=== PATIENT | male | born 1960 | race Caucasian/White ===

== ENCOUNTER 2021-04-24 15:17 | Inpatient (IN) | payer OTHER ==
[~2021-04-24] VITALS: Ht 180.3 cm; Wt 104.3 kg
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
--- NOTE | 2021-04-24 15:50 | NUR ---
IV LINE STARTED BLOOD DRAWN AND SENT TO LAB.
[2021-04-24 16:04] LABS: BASOPHILS # (AUTO) 0.1 K/uL (0.0-0.2); BASOPHILS % (AUTO) 0.8 % (0.0-2.0); EOSINOPHILS % (AUTO) 1.6 % (0.0-6.0); HEMATOCRIT 42 % (39-51); HEMOGLOBIN 14.2 g/dL (13.5-17.5); LYMPHOCYTES # (AUTO) 1.9 K/uL (0.8-4.8); LYMPHOCYTES % (AUTO) 14.5 % (20.0-44.0); MEAN CORPUSCULAR HGB CONC 34 g/dl (31.0-36.0); MEAN CORPUSCULAR VOLUME 92 fL (80-96); MONOCYTES # (AUTO) 1.5 K/uL (0.1-1.30); MONOCYTES % (AUTO) 11.4 % (2.0-12.0); NEUTROPHILS # (AUTO) 9.2 K/uL (1.8-8.9); NEUTROPHILS % (AUTO) 71.7 % (43.0-81.0); PLATELET COUNT (AUTO) 347 K/uL (150-450); WHITE BLOOD COUNT (AUTO) 12.8 K/uL (4.3-11.0)
[2021-04-24 16:17] LABS: CALCIUM, SERUM 8.7 mg/dL (8.5-10.1); CREATININE 1.3 mg/dL (0.6-1.3); POTASSIUM 3.5 mmol/L (3.5-5.1)
[2021-04-24 16:22] LABS: BILIRUBIN,DIRECT 0.4 mg/dL (0.0-0.2); BILIRUBIN,TOTAL 1.5 mg/dL (0.2-1.0); TOTAL PROTEIN, SERUM 7.2 g/dL (6.4-8.2)
--- NOTE | 2021-04-24 16:24 | NUR ---
DR BROOKS AT BEDSIDE FOR EVAL.
[2021-04-24 16:54] LABS: ALCOHOL, BLOOD < 3 mg/dL (0-0); MAGNESIUM 1.6 mg/dL (1.8-2.4)
[2021-04-24] MEDS ORDERED: FURO20TA4 PO (17:26)
[2021-04-24] MEDS ORDERED: ASPI-1169 PO (17:27)
[2021-04-24] MEDS ORDERED: LORA10TA7 PO (17:27)
[2021-04-24] MEDS ORDERED: AMLO-213 PO (17:27)
[2021-04-24] MEDS ORDERED: METO200T49 PO (17:27)
[2021-04-24] MEDS ORDERED: HYDR-4077 PO (17:27)
[2021-04-24] MEDS ORDERED: ATOR40TA PO (17:27)
--- NOTE | 2021-04-24 17:31 | NUR ---
COVID SWAB DONE AND SENT TO THE LAB
[2021-04-24] MEDS ORDERED: MAGNESIUM OXIDE 400 MG TABLET PO ONE (18:00)
[2021-04-24] MEDS ORDERED: ASPIRIN 325 MG TABLET PO ONE (18:00)
--- NOTE | 2021-04-24 18:10 | NUR ---
MOVE SHEET SUBMITTED.
--- NOTE | 2021-04-24 18:28 | NUR ---
PT TO RADIOLOGY FOR CHEST CT VIA [facility].
[2021-04-24] MEDS ORDERED: MAGNESIUM HYDROXIDE 30 ML UDC PO PRN (18:30)
[2021-04-24] MEDS ORDERED: MAG HYDROX/AL HYDROX/SIMETH 30 ML UDC PO PRN (18:30)
[2021-04-24] MEDS ORDERED: ACETAMINOPHEN 325 MG TABLET PO PRN (18:30)
[2021-04-24] MEDS ORDERED: ONDANSETRON HCL/PF 4 MG/2 ML VIAL IVP PRN (18:30)
--- NOTE | 2021-04-24 18:56 | NUR ---
THE PATIENT IS BACK FROM RADIOLOGY DEPT IN STABLE CONDITON.
[2021-04-24] MEDS ORDERED: ENOXAPARIN SODIUM 40 MG/0.4 ML DISP.SYRIN SQ SCH (19:00)
[2021-04-24] MEDS ORDERED: ASPIRIN 325 MG TABLET ONE (19:03)
[2021-04-24 19:21] LABS: CALCIUM, SERUM 8.4 mg/dL (8.5-10.1); CREATININE 1.2 mg/dL (0.6-1.3); POTASSIUM 3.6 mmol/L (3.5-5.1)
[2021-04-24 19:31] LABS: ALBUMIN 3.5 g/dL (3.4-5.0); BILIRUBIN,TOTAL 1.2 mg/dL (0.2-1.0); TOTAL PROTEIN, SERUM 6.3 g/dL (6.4-8.2)
[2021-04-24 19:57] LABS: THYROID STIMULATING HORMONE 2.713 uIU/mL (0.358-3.74)
--- NOTE | 2021-04-24 20:18 | NUR ---
PATIENT SITTING AT BED, REQUSTING FOR URINAL. PATIENT VVS, CONNECTED TO MONITOR.
[2021-04-24] MEDS ORDERED: ATORVASTATIN 40 MG TABLET PO SCH (22:00)
--- NOTE | 2021-04-25 00:16 | NUR ---
PT ASLEEP, EASILY AROUSABLE, NO ACUTE DISTRESS NOTED, RESP EVEN AND UNLABORED. CALL LIGHT WITHIN REACH. WILL CONTINUE TO MONITOR PT CLOSELY.
[2021-04-25] MEDS: BLOOD SUGAR DIAGNOSTIC 1 EACH STRIP IN SCH ×4 (04:11→17:18)
[2021-04-25 04:44] LABS: BASOPHILS # (AUTO) 0.4 K/uL (0.0-0.2); BASOPHILS % (AUTO) 3.5 % (0.0-2.0); EOSINOPHILS % (AUTO) 5.2 % (0.0-6.0); HEMATOCRIT 43 % (39-51); HEMOGLOBIN 14.5 g/dL (13.5-17.5); LYMPHOCYTES # (AUTO) 1.1 K/uL (0.8-4.8); LYMPHOCYTES % (AUTO) 10.6 % (20.0-44.0); MEAN CORPUSCULAR HGB CONC 34 g/dl (31.0-36.0); MEAN CORPUSCULAR VOLUME 93 fL (80-96); MONOCYTES % (AUTO) 9.6 % (2.0-12.0); NEUTROPHILS # (AUTO) 7.4 K/uL (1.8-8.9); NEUTROPHILS % (AUTO) 71.1 % (43.0-81.0); PLATELET COUNT (AUTO) 346 K/uL (150-450); RED BLOOD CELL COUNT(AUTO) 4.65 MIL/uL (4.5-6.0); WHITE BLOOD COUNT (AUTO) 10.3 K/uL (4.3-11.0)
[2021-04-25 04:59] LABS: CALCIUM, SERUM 8.9 mg/dL (8.5-10.1); CREATININE 1.2 mg/dL (0.6-1.3); PHOSPHORUS 3.2 mg/dL (2.5-4.9); POTASSIUM 3.8 mmol/L (3.5-5.1)
[2021-04-25] MEDS ORDERED: ENOXAPARIN SODIUM 40 MG/0.4 ML DISP.SYRIN SQ ONE (05:00)
[2021-04-25 05:23] LABS: BASOPHILS % (MANUAL) 0 % (0.0-2.0); EOSINOPHILS % (MANUAL) 2 % (0-4); LYMPHOCYTES % (MANUAL) 10 % (16-48); MONOCYTES % (MANUAL) 10 % (0-11.0); NEUTROPHILS % (MANUAL) 78 (42-76)
--- NOTE | 2021-04-25 05:58 | NUR ---
REPORT CALLED TO TELE 1 OFELIA HIDALGO. WILL TRANSPORT PT VIA [facility]S [facility].
[2021-04-25 06:30] VITALS: BP 120/78
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
[2021-04-25 06:40] VITALS: BP 84/42
--- NOTE | 2021-04-25 07:43 | NUR ---
Pt is Awake, A/O X 4, On room air. No respiratory distress, no SOB. Iv site RAC with clean with no s/sx of infiltration. Tele box showing sinus rhythm, Safety precautions implemented, bed locked in lowest position. Call light within reach.
[2021-04-25] MEDS: FUROSEMIDE 20 MG TABLET PO SCH (08:42)
[2021-04-25] MEDS: AMLODIPINE BESYLATE 10 MG TABLET PO SCH (08:42)
[2021-04-25] MEDS: ASPIRIN 81 MG TAB.CHEW PO SCH (08:42)
[2021-04-25] MEDS: LORATADINE 10 MG TABLET PO SCH (08:43)
[2021-04-25] MEDS: hydrALAZINE HCL 50 MG TABLET PO SCH ×2 (08:45→16:49)
[2021-04-25] MEDS ORDERED: ASPIRIN 81 MG TAB.CHEW PO SCH (09:00)
--- NOTE | 2021-04-25 19:23 | NUR ---
rn note patient is bed with hob at semi fowlers position. patient is aox4. patient is on ra with no signs of labored breathing. patient's iv access is patent and intact. all safety measures in place. will endorse to overnight cashier rn.
--- NOTE | 2021-04-25 19:30 | NUR ---
TELE1 RN NOTES RECEIVED LYING COMFORTABLY ON BED,BREATHING EASY,NO SOB.SALINE LOCK RIGHT AC INTACT AND PATENT,SR WITH PVC-60,A/O X3-4,ABLE TO WALK TO THE BATHROOM,NOT IN ANY FORM OF DISTRESS,DENIES CHEST PAIN,CALL LIGHT IN REACH,NEEDS ANTICIPATED.
[2021-04-25 20:00] VITALS: BP 113/52
[2021-04-25] MEDS: ATORVASTATIN 40 MG TABLET PO SCH (22:08)
--- NOTE | 2021-04-25 22:30 | NUR ---
TELE1 RN NOTES ON BED AWAKE,MED COMPLIANT
[2021-04-26] VITALS: BP 112/62
[2021-04-26] MEDS: BLOOD SUGAR DIAGNOSTIC 1 EACH STRIP IN SCH ×5 (00:04→23:57)
--- NOTE | 2021-04-26 00:06 | NUR ---
SEEING EYE DOG TRAINER NOTES ACCU-CHECK BLOOD SUGAR CHECK 100,NO INSULIN COVERAGE
--- NOTE | 2021-04-26 02:15 | NUR ---
TELE1 RN NOTES PATIENT CALL SAYING HAVING SEIZURE,NURSE ASSIGNED WENT TO THE ROOM TO CHECK,PATIENT SITTING ON EDGE OF BED,ABLE TO COMMUNICATE WELL.HEART RATE ON MONITOR 72.
[2021-04-26 04:00] VITALS: BP 118/63
--- NOTE | 2021-04-26 05:29 | NUR ---
TELE1 RN NOTES ACCU-CHECK BLOOD SUGAR CHECK 102,NO INSULIN COVERAGE
--- NOTE | 2021-04-26 05:30 | NUR ---
TELE1 RN NOTES NOTED PATIENT WHILE CHECKING HIS BLOOD SUGAR ,HE'S TAPPING THE BED WITH HIS FOOT AND RAISING HIS LEGS WELL LASTED 15 SECONDS,AFTER THE HE ASKED THE NURSE WITNESS THE ACTIVITY, DID YOU SEE THAT,HOW MANY MINUTES,CAN I HAVE SEIZURE PILL, I TOLD HIM THIS TIME,ILL LET THE DOCTORS KNOW ABOUT THE SEIZURE,AND HE SAID THANK YOU. CHARGE NURSE MELISSA MADE AWARE.
--- NOTE | 2021-04-26 06:00 | NUR ---
PREFORMING MACHINE OPERATOR NOTES DR CHAUHAN MADE AWARE OF PATIENT HAVING FAKE SEIZURE,AWAITING TO CALL BACK.
--- NOTE | 2021-04-26 06:23 | NUR ---
TELE1 RN NOTES ON BED WATCHING TV PROGRAM,BREATHING REGULAR,NOT IN ANY FORM OF DISTRESS.CALL LIGHT IN REACH,NEEDS ATTENDED.WILL CONTINUE TO MONITOR FOR REAL SEIZURE.WILL ENDORSE TO DAY NURSE FOR NILSA.
--- NOTE | 2021-04-26 07:34 | NUR ---
RN OPENING NOTES Pt is A/O X 4, on room air satting at 96%, no respiratory distress, no SOB. Sinus rhythm, Right AC IV with no s/sx of infiltration. Safety precautions implemented, bed locked in lowest position, call light within reach.
[2021-04-26] MEDS: LORATADINE 10 MG TABLET PO SCH (08:09)
[2021-04-26] MEDS: ASPIRIN 81 MG TAB.CHEW PO SCH (08:09)
[2021-04-26] MEDS: ENOXAPARIN SODIUM 40 MG/0.4 ML DISP.SYRIN SQ SCH (08:09)
[2021-04-26] MEDS: hydrALAZINE HCL 50 MG TABLET PO SCH ×2 (08:10→17:20)
[2021-04-26] MEDS: FUROSEMIDE 20 MG TABLET PO SCH (08:10)
[2021-04-26] MEDS: AMLODIPINE BESYLATE 10 MG TABLET PO SCH (08:10)
--- NOTE | 2021-04-26 15:30 | NUR ---
RN INCIDENT NOTE Upon rounds, patient got up from bed verbally incoherent, not following directions, and hit his right side of head against the wall. With minimall assistance he walked back to bed. Claims he had seizure episode and does not recall event. No changes in level of consciousness, remains alert and oriented x3, able to move all extremities, no superficial injuries noted. DNP made aware, will continue to monitor.
[2021-04-26] MEDS ORDERED: LORAZEPAM INJ 2 MG/ML VIAL IV STA (16:02)
[2021-04-26] MEDS ORDERED: LEVETIRACETAM SOL (5 ML) 100 MG/ML UDC PO ONE (16:30)
--- NOTE | 2021-04-26 18:46 | NUR ---
RN CLOSING NOTE Pt is A/O X 3, No respiratory distress, no SOB, on 2 Liters via NC. Tele reading sinus rhythm with PVC's. Continent of B/B. Pulled out his IV during shift, reinserted on Right hand 22G. B/S 195 @ 1700. Keppra and ativan administered x 1 for possible seizure per MD. Spoke with Mother Hoang made aware of incident. Safety precautions implemented, bed locked in lowest position, call light within reach.
--- NOTE | 2021-04-26 19:00 | NUR ---
RN NOTE RECEIVED PATIENT IN BED, AO X 3-4, IN NO S/SX OF ACUTE DISTRESS AT THIS TIME. BREATHING EVEN AND UNLABORED, SATURATION AT 95% ON ROOM AIR, SR WITH PVC's ON THE MONITOR, HR IS 91. NOTED IV SITE AT R HAND 22G, PATENT AND FLUSHING WELL, NO S/S OF INFECTION OR INFILTRATION. SEIZURE PRECAUTIONS IN PLACE. SAFETY MEASURES IMPLEMENTED. PATIENT BED ALARM IS ON. HEAD OF BED ELEVATED. BED IS LOCKED, IN LOWEST POSITION AND SIDE RAILS UP. CALL LIGHT WITHIN REACH OF THE PATIENT. WILL CONTINUE TO MONITOR AND REASSESS FOR ANY CHANGES.
[2021-04-26 20:00] VITALS: BP 121/65
[2021-04-26] MEDS: LEVETIRACETAM (250 MG) 250 MG TABLET PO SCH (21:06)
[2021-04-26] MEDS: ATORVASTATIN 40 MG TABLET PO SCH (21:07)
[2021-04-27] VITALS: BP 115/71
[2021-04-27 04:00] VITALS: BP 119/75
[2021-04-27] MEDS: BLOOD SUGAR DIAGNOSTIC 1 EACH STRIP IN SCH ×4 (05:26→22:48)
--- NOTE | 2021-04-27 05:30 | NUR ---
RN NOTE NOTED PATIENT HAD SEIZURES X 2. DR CHAUHAN WAS NOTIFIED, ORDERS RECEIVED FOR ATIVAN 1 MG [id number] PRN X 2 FOR SEIZURES. RUG WASHEROFELIA TORRES MADE AWARE
[2021-04-27] MEDS ORDERED: LORAZEPAM INJ 2 MG/ML VIAL IV PRN (06:00)
--- NOTE | 2021-04-27 06:15 | NUR ---
RN NOTE PATIENT TRANSFERRED TO [facility] UNIT ROOM 327-1 IN STABLE CONDITION. REPORT GIVEN TO FRANCESCO GILBERT FOR CONTINUATION OF CARE.
[2021-04-27 06:30] VITALS: BP 129/66
--- NOTE | 2021-04-27 06:40 | NUR ---
END OF SHIFT REPORT 06:20am Patient transferred from [facility] to room [facility] by bed. Patient is A/O x3. Oriented to room, unit, staff. Skin check done, right eye lid redness and skin tear, obtained from previous seizure per report OFELIA Dutta. No pressure injury noted. Made comfortable in bed, no c/o pain at this time. Sinus Rhythm HR 69 in the Tele monitor. Seizure precaution maintained.
[2021-04-27 08:00] VITALS: BP 129/76
--- NOTE | 2021-04-27 08:00 | NUR ---
TELE/RN OPENING NOTES RECEIVED PATIENT IN BED , ALERT AND ORIENTEDX3, ABLE TO MAKE NEEDS KNOWN. STABLE ON ROOM AIR. ON SEIZURE PRECAUTION. IV ACCESS ON RIGHT HAND #22G IS INTACT AND PATENT ON SALINE LOCK. SAFETY PRECAUTIONS MAINTAINED: BED LOCKED ON LOWEST POSITION, SIDE RAILS UPX2, CALL LIGHT WITHIN REACH. WILL CONTINUE TO MONITOR PATIENT.
[2021-04-27] MEDS: hydrALAZINE HCL 50 MG TABLET PO SCH ×2 (09:13→18:02)
[2021-04-27] MEDS: LEVETIRACETAM (250 MG) 250 MG TABLET PO SCH ×2 (09:13→22:40)
[2021-04-27] MEDS: ASPIRIN 81 MG TAB.CHEW PO SCH (09:14)
[2021-04-27] MEDS: AMLODIPINE BESYLATE 10 MG TABLET PO SCH (09:14)
[2021-04-27] MEDS: LORATADINE 10 MG TABLET PO SCH (09:14)
[2021-04-27] MEDS: FUROSEMIDE 20 MG TABLET PO SCH (09:14)
[2021-04-27] MEDS: CLOPIDOGREL BISULFATE 75 MG TABLET PO SCH (09:14)
[2021-04-27] MEDS: ENOXAPARIN SODIUM 40 MG/0.4 ML DISP.SYRIN SQ SCH (09:15)
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
--- NOTE | 2021-04-27 11:53 | NUR ---
This VINE FRUIT FARMING SUPERVISOR met with relief charge nurse Gina and informed her that the DMV form has been filed in patient's chart for patient's attending FNPS Marsha to sign.
[2021-04-27] MEDS ORDERED: LEVE250T2 PO (14:56)
[2021-04-27] MEDS ORDERED: CLOP75TA15 PO (14:56)
[2021-04-27 15:51] VITALS: BP 134/94
--- NOTE | 2021-04-27 18:53 | NUR ---
TELE/RN CLOSING NOTES PATIENT IN BED , ALERT AND ORIENTEDX3, ABLE TO MAKE NEEDS KNOWN. STABLE ON ROOM AIR. ON SEIZURE PRECAUTION. IV ACCESS ON RIGHT HAND #22G IS INTACT AND PATENT ON SALINE LOCK. BLOOD SUGAR CHECKS DONE, PATIENT REFUSED ANY INSULIN COVERAGE. ALL NEEDS ARE MET. SAFETY PRECAUTIONS MAINTAINED: BED LOCKED ON LOWEST POSITION, SIDE RAILS UPX2, CALL LIGHT WITHIN REACH. WILL ENDORSE TO THE NEXT SHIFT FOR NILSA.
[2021-04-27 20:00] VITALS: BP 109/53
--- NOTE | 2021-04-27 20:27 | NUR ---
MS/TELE/RN ON INITIAL SHIFT ASSESSMENT, PATIENT WAS SLEEPING, APPEAR COMFORTABLE, BREATHING EVEN AND UNLABORED, CALL LIGHT IN REACH, WILL MONITOR.
[2021-04-27] MEDS: ATORVASTATIN 40 MG TABLET PO SCH (22:40)
[2021-04-28] VITALS: BP 106/62
--- NOTE | 2021-04-28 00:35 | NUR ---
Pasquale GILBERT Notes Patient's blood sugar at 0035 was 100mg/dL. Addendum: 04/29/21 at 0564 by YOAN SEPULVEDA RN Disregard this note
--- NOTE | 2021-04-28 00:51 | NUR ---
MS/TELE/RN PATIENT IS SLEEPING, APPEAR COMFORTABLE, NO DISTRESS NOTED, ENDORSED TO NEXT NURSE FOR CONTINUITY OF CARE.
[2021-04-28 04:00] VITALS: BP 125/69
[2021-04-28 04:21] VITALS: BP 129/64
[2021-04-28] MEDS: BLOOD SUGAR DIAGNOSTIC 1 EACH STRIP IN SCH ×2 (06:29→18:09)
--- NOTE | 2021-04-28 07:30 | NUR ---
TELE/RN OPENING NOTES RECEIVED PATIENT ON BED , ALERT AND ORIENTEDX3, ABLE TO MAKE NEEDS KNOWN. STABLE ON ROOM AIR. ON SEIZURE PRECAUTION. WITH IV ACCESS AT RIGHT HAND #22G IS INTACT AND PATENT ON SALINE LOCK. SAFETY PRECAUTIONS MAINTAINED: BED ON LOWEST AND LOCKED POSITION, SIDE RAILS UPX2, CALL LIGHT WITHIN REACH. WILL CONTINUE TO MONITOR.
[2021-04-28] MEDS: ASPIRIN 81 MG TAB.CHEW PO SCH (09:05)
[2021-04-28] MEDS: LORATADINE 10 MG TABLET PO SCH (09:05)
[2021-04-28] MEDS: FUROSEMIDE 20 MG TABLET PO SCH (09:05)
[2021-04-28] MEDS: LEVETIRACETAM (250 MG) 250 MG TABLET PO SCH (09:05)
[2021-04-28] MEDS: AMLODIPINE BESYLATE 10 MG TABLET PO SCH (09:06)
[2021-04-28] MEDS: CLOPIDOGREL BISULFATE 75 MG TABLET PO SCH (09:06)
[2021-04-28] MEDS: ENOXAPARIN SODIUM 40 MG/0.4 ML DISP.SYRIN SQ SCH (09:16)
[2021-04-28] MEDS: hydrALAZINE HCL 50 MG TABLET PO SCH ×2 (09:28→17:50)
[2021-04-28] MEDS ORDERED: LORAZEPAM 1 MG TABLET PO ONE (16:00)
[2021-04-28] MEDS ORDERED: LEVETIRACETAM (250 MG) 250 MG TABLET PO ONE (16:30)
[2021-04-28 17:50] VITALS: BP 132/91
--- NOTE | 2021-04-28 19:02 | NUR ---
LEADERSHIP PROGRAM ASSOCIATE CLOSING NOTES PATIENT SITTING ON BED, AWAKE AND RESPONSIVE, A/O X4. ON ROOM AIR. WITH NO COMPLAINTS OF PAIN AND SOB, NOT IN DISTRESS. WITH IV ACCESS AT RIGHT HAND G22, SALINE LOCKED. WITH PERIODS OF SEIZURES, MD AWARE. SAFETY MEASURES IN PLACED. CALL LIGHT WITHIN REACH. BED ON LOWEST, LOCKED POSITION. SIDE RAILS UP X 2. NEEDS ATTENDED. WILL ENDORSE FOR NILSA TO AUTOMOTIVE MANAGER.
--- NOTE | 2021-04-28 20:01 | NUR ---
cooling room attendant Opening Notes Patient was last seen sleeping in bed. Patient's alert and oriented x3. Patient's on room air with no respiratory distress noted. Patient's connected to a tele monitor with no cardiac distress noted. Patient has an IV access on his left hand gauge #22. Patient's in no acute distress at this time. Safety measures in place: Bed locked, bed alarm on, side rails up x3, and call light within reach. Will continue to monitor the patient.
[2021-04-28] MEDS ORDERED: LEVETIRACETAM (250 MG) 250 MG TABLET PO SCH (21:00)
[2021-04-28] MEDS: ATORVASTATIN 40 MG TABLET PO SCH (21:15)
[2021-04-28] MEDS ORDERED: TEMAZEPAM 15 MG CAPSULE PO PRN (22:30)
[2021-04-29] MEDS: BLOOD SUGAR DIAGNOSTIC 1 EACH STRIP IN SCH ×2 (00:35→05:19)
--- NOTE | 2021-04-29 05:19 | NUR ---
candle wicker Notes Patient's blood sugar at 0505 was 89 mg/dL.
--- NOTE | 2021-04-29 05:20 | NUR ---
leverman Notes Patient's blood sugar at 0505 was 89 mg/dL.
--- NOTE | 2021-04-29 06:19 | NUR ---
farmworker chicken farm Notes Patient left AMA around 0617. Patient was in no acute distress at the time of discharge. Patient signed for his belongings and was given a prescription for medications.
== END 2021-04-29 06:00 | disposition left against medical advice (07) | DRG 53 ==
LOC: ER 15:19 → TRANSITION 04-25 02:44 → TELE1 04-25 05:50 → TELE 04-27 06:17 → MED 04-29 06:00
PROVIDERS: ADMIT Nurse Practitioner Acute Care; ATTEND Nurse Practitioner Acute Care
DX: R56.9 Unspecified convulsions (principal); I63.9 Cerebral infarction, unspecified; I21.4 Non-ST elevation (NSTEMI) myocardial infarction; I42.9 Cardiomyopathy, unspecified; E83.42 Hypomagnesemia; I10 Essential (primary) hypertension; D72.829 Elevated white blood cell count, unspecified; E78.5 Hyperlipidemia, unspecified; Z91.041 Radiographic dye allergy status; Z20.822 Contact with and (suspected) exposure to COVID-19; R55 Syncope and collapse; R29.700 NIHSS score 0; R78.5 Finding of other psychotropic drug in blood
CPT/HCPCS: 36415; 70450-TC; 70551-TC; 71045-TC; 71250-TC; 80048-TC; 80053-TC; 80061-TC; 80076-TC; 82962-TC; 83735-TC; 83880; 84100-TC; 84443-TC; 84484-TC; 85025-TC; 85652-TC; 85730-TC; 87081-TC; 92526; 92611-TC; 93307-TC; 93880-TC; 95819-TC; 97112-TC; 97116-TC; 97530-TC; C9803; G0378; G0480; J1650; J1953; J2060; J2405